=== PATIENT | male | born 1990 | race Caucasian/White ===

== ENCOUNTER 2019-01-04 00:54 | Emergency (ER) | payer OTHER ==
[~2019-01-04] VITALS: Ht 177.8 cm; Wt 140.3 kg
[2019-01-04 01:00] VITALS: Ht 177.8 cm; Wt 140.3 kg
--- NOTE | 2019-01-04 05:14 | ERD ---
ER Documentation Chief Complaint Chief Complaint lower back pain x 5 days. denies injury. hx of sciatica, prostatitis, uti HPI This is a 28-year-old male who presents here in emerge department with complaints of left lower back pain that radiates to left lower extremity. Has history of sciatica, prostatitis, UTI. Works at [employer]. Denies headache, head injury, loss of consciousness, dizziness, neck pain, neck stiffness, throat pain, difficulty swallowing, difficulty breathing lying flat, shoulder pain, chest pain, abdominal pain, nausea, vomiting, constipation, diarrhea, urinary symptoms, loss of bowel and bladder control, trauma, injury, falls, difficulty walking due to pain, numbness or tingling sensation, calf pain, recent travel, recent major surgery in the last 3 weeks, calf pain, recent long travel, recent exposure to any illness, recent antibiotic use in the last 3 months, fever, chills, seizures. Past medical history: Sciatica was diagnosed 3 years ago. Surgical history: Social: Denies smoking, use of alcoholic beverages, use of illegal drugs. ROS All systems reviewed and are negative except as per history of present illness. Medications Home Meds Active Scripts Tramadol HCl (Tramadol HCl) 50 Mg Tablet, 50 MG PO Q4 PRN for SEVERE PAIN LEVEL 7-10, #4 TAB Prov:PASILABAN,KLAR F 01/04/19 Ibuprofen* (Motrin*) 800 Mg Tab, 800 MG PO Q6H PRN for PAIN AND OR ELEVATED TEMP, #30 TAB Prov:PASILABAN,KLAR F 01/04/19 Metaxalone* (Skelaxin*) 800 Mg Tablet, 800 MG PO Q8 PRN for MUSCLE SPASMS, #20 TAB Prov:PASILABAN,KLAR F 01/04/19 Allergies Allergies: Coded Allergies: No Known Drug Allergies (Verified Allergy, Unknown, 01/04/19) PMhx/Soc Hx Miscellaneous Medical Probl: Yes (UTI, sciatica, prostatitis) Hx Alcohol Use: No Hx Substance Use: No Hx Tobacco Use: No Smoking Status: Never smoker Physical Exam Vitals Physical Exam Const: No acute distress Head: Atraumatic Eyes: Normal Conjunctiva ENT: Normal External Ears, Nose and Mouth. Neck: Full range of motion. No meningismus. Resp: Clear to auscultation bilaterally Cardio: Regular rate and rhythm, no murmurs Abd: Soft, non tender, non distended. Normal bowel sounds Skin: No petechiae or rashes Back: No midline or flank tenderness. Left straight leg test is positive. Bilateral hips are stable and unremarkable. No neurovascular deficit. No calf tenderness. Ext: No cyanosis, or edema. Neur: Awake and alert. No neurological deficit. Psych: Normal Mood and Affect Results 24 hrs Current Medications Medications Dose Sig/Maggy Start Time Status Last (Trade) Ordered Route PRN Stop Time Admin Dose Reason Admin Morphine 6 mg ONCE ONCE 01/04/19 DC 01/04/19 Sulfate IM 05:30 05:26 (morphine) 01/04/19 05:31 10 mg ONCE ONCE 01/04/19 DC 01/04/19 Dexamethasone IM 05:30 05:26 (Decadron) 01/04/19 05:31 Procedures/MDM Diagnostic tests: Clinical exam. Treatment: Morphine IM. Dexamethasone IM. Re-evaluation: Denies back pain. No neurovascular deficit. No saddle anesthesia. Ambulatory with steady gait. No neurological deficits. Differential diagnosis I have low suspicion for cauda equina syndrome, AAA, compartment syndrome, DVT. Final diagnosis: Sciatica. Chronic back pain. Prescription: Skelaxin. Motrin. Follow-up with PCP in the next 24-48 hours. PCP to do an MRI. PCP to refer patient to pain specialist. Come back here in the emergency department for any new symptoms or any worsening symptoms. All questions and concerns were answered. Patient and family members verbalized understanding and agreed with plan of care. Hemodynamically stable on discharge. Departure Diagnosis: Primary Impression: Back pain Additional Impressions: Chronic back pain Sciatica Condition: Stable Additional Instructions: Follow-up with PCP in the next 24-48 hours. PCP to do an MRI. PCP to refer patient to pain specialist. Come back here in the emergency department for any new symptoms or any worsening symptoms. SUMMER RICHARDS January 04, 2019 05:13
[2019-01-04] MEDS ORDERED: IBUP800T48 PO (05:29)
[2019-01-04] MEDS ORDERED: META-121 PO (05:29)
[2019-01-04] MEDS ORDERED: TRAM50TA2 PO (05:30)
[2019-01-04] MEDS ORDERED: morphine 10 MG INJ IM ONE (05:30)
[2019-01-04] MEDS ORDERED: DEXAMETHASONE 10 MG/ML 1 ML INJ IM ONE (05:30)
[2019-01-04 06:03] VITALS: BP 137/76; PULSE 71; RESP 20
== END 2019-01-04 06:21 | disposition home or self-care (01) ==
LOC: FTE 00:54
DX: M54.42 Lumbago with sciatica, left side (principal)
CPT/HCPCS: 96372; J1100; J2270; Z7502